=== PATIENT | male | born 1985 | race Caucasian/White ===

== ENCOUNTER 2020-11-27 07:12 | Emergency (ER) | payer OTHER ==
[~2020-11-27] VITALS: Ht 177.8 cm; Wt 84.4 kg
--- OUTSIDE RECORDS SUMMARY | 2020-11-27 07:20 | XMS ---
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 [place] (12 MO.) [facility] [address] [place] [address] TOTAL 2 NOTE: Visits indicate total known visits. ED/C VISIT TRACKING (12 MO.) 11/27/2020 07:13 [facility] [place] TYPE: Emergency COMPLAINT: - ABD PAIN 11/25/2020 09:27 [facility] Ifeoma ORTEZ TYPE: Emergency DIAGNOSES: - Abdominal Pain - Left lower quadrant pain INPATIENT VISIT TRACKING (12 MO.) No inpatient visits to display in this time frame [id number]
[2020-11-27] MEDS ORDERED: RIZATRIPTAN10 M1 PO (07:25)
[2020-11-27] MEDS ORDERED: AMITRIPTYLINE H75 MG PO (07:25)
[2020-11-27] MEDS ORDERED: OMEPRAZOLE20 MG PO (09:46)
== END 2020-11-27 09:58 | disposition home or self-care (01) ==
LOC: ED 07:12
DX: R10.9 Unspecified abdominal pain (principal); Z79.899 Other long term (current) drug therapy
CPT/HCPCS: 80053; 83690; 85025; 96374; 99284-25; C9113

== ENCOUNTER 2021-05-13 16:42 | Emergency (ER) | payer OTHER ==
[~2021-05-13] VITALS: Ht 177.8 cm; Wt 80.7 kg
[~2021-05-13 16:42] MED LIST: AMITRIPTYLINE H75 MG PO; OMEPRAZOLE20 MG PO; RIZATRIPTAN10 M1 PO
[2021-05-13] MEDS ORDERED: DOXYCYCLINE HY100 MG PO (19:15)
== END 2021-05-13 20:21 | disposition home or self-care (01) ==
LOC: ED 16:42
DX: N50.811 Right testicular pain (principal)
CPT/HCPCS: 76870; 81001; 99284-25